=== PATIENT | male | born 1950 | race Two or more races ===

== ENCOUNTER 2018-04-09 23:15 | Emergency (ER) | payer MEDICARE ==
[~2018-04-09] VITALS: Ht 170.2 cm; Wt 86.2 kg
[2018-04-09 23:26] VITALS: Ht 170.2 cm; Wt 86.2 kg
[2018-04-10 00:36] LABS: BASOPHIL % 0.5 % (0-2); PLATELET COUNT 162 x10^3mcL (130-400); RED CELL DISTRIBUTION WIDTH 13.7 % (11.5-14.5)
[2018-04-10 00:58] LABS: CARBON DIOXIDE 23.5 mmol/L (21-32); CHLORIDE SERUM 103 mmol/L (98-107); GFR1 > 60 mL/min; POTASSIUM SERUM 3.5 mmol/L (3.5-5.1); SODIUM SERUM 142 mmol/L (136-145)
[2018-04-10 01:03] LABS: ALBUMIN 3.7 g/dL (3.4-5.0); ALKALINE PHOSPHATASE 60 U/L (46-116); BILIRUBIN TOTAL 0.3 mg/dL (0.20-1.00)
[2018-04-10 01:32] LABS: GLUCOSE SERUM 201 mg/dL (74-106)
[2018-04-10 01:34] LABS: AST/SGOT 38 U/L (15-37)
[2018-04-10 01:47] LABS: ALT/SGPT 14 U/L (16-63)
[2018-04-10 02:05] LABS: UA SPECIFIC GRAVITY >=1.030 (1.005-1.035); microscopic required? YES; urine erythrocyte 3+ (NEGATIVE)
[2018-04-10 02:19] LABS: AMPHETAMINE QUAL UR NONE DETECTED (See below)
[2018-04-10 04:50] VITALS: BP 113/75
== END 2018-04-10 04:50 | disposition short-term general hospital (02) ==
LOC: ED 23:15
PROVIDERS: Emergency Medicine
DX: E87.2 Acidosis (principal); E11.649 Type 2 diabetes mellitus with hypoglycemia without coma; M79.631 Pain in right forearm; M79.651 Pain in right thigh; E78.00 Pure hypercholesterolemia, unspecified; I10 Essential (primary) hypertension; Z88.0 Allergy status to penicillin; V49.88XA Car occupant (driver) (passenger) injured in other specified transport accidents, initial encounter; Y93.I9 Activity, other involving external motion; Y92.413 State road as the place of occurrence of the external cause; Y99.8 Other external cause status
CPT/HCPCS: 82962; 83880; G0480; J0692; J0696; J1580; J1885; J3370; J7030; Q0092